=== PATIENT | female | born 1995 | race African-American/Black ===

== ENCOUNTER 2021-04-19 07:10 | Inpatient (IN) | payer OTHER ==
[2021-04-19] VITALS (8 sets, daily range): BP systolic 95–118; BP diastolic 52–63
[~2021-04-19] VITALS: Ht 157.5 cm; Wt 82.5 kg
[~2021-04-19 07:10] MED LIST: IRON15CH PO; PREN200C PO; VITA-243 PO
[2021-04-19] MEDS ORDERED: HOME MED LIST COMPLETE! XX SCH (07:35)
[2021-04-19] MEDS ORDERED: BICITRA 30ML SOLN UDC PO ONE (08:00)
[2021-04-19] MEDS ORDERED: ceFAZolin SOD 2 GM in IV 1 EA IV ONE (08:00)
[2021-04-19] MEDS ORDERED: LR 1,000 ML IV ONE (08:00)
[2021-04-19] MEDS ORDERED: IRON15CH PO (08:01)
[2021-04-19 08:28] LABS: HEMATOCRIT 31.3 % (36.0-47.0); MEAN CORPUSCULAR HEMOGLOBIN 25.6 pg (27.0-33.0); MEAN CORPUSCULAR HGB CONC 31.9 g/dl (32.0-36.5); MEAN CORPUSCULAR VOLUME 80.3 fl (80.0-96.0); PLATELET COUNT, AUTOMATED 296 10^3/uL (150-450); WHITE BLOOD COUNT 11.8 10^3/uL (4.0-10.0)
[2021-04-19] MEDS ORDERED: ONDANSETRON 4MG/2ML VIAL IV PRN ×2 (08:40→11:25)
[2021-04-19] MEDS ORDERED: diphenhydrAMINE 50MG/ML VIAL (J1200) IV PRN (08:40)
[2021-04-19] MEDS ORDERED: METOCLOPRAMIDE INJ 10MG/2ML VIAL (J2765 PER 1) IV PRN (08:40)
[2021-04-19] MEDS ORDERED: NALBUPHINE HCL 10 MG/ML AMP (J2300) IV PRN ×2 (08:40→11:25)
[2021-04-19] MEDS ORDERED: NALOXONE INJ 0.4MG/1ML VIAL (J2310 PER 1MG) IV PRN ×2 (08:40)
[2021-04-19] MEDS ORDERED: MORPHINE PRES-FREE INJ 10 MG/10 ML VIAL (J2274) As Ordered ONE (08:43)
[2021-04-19] MEDS ORDERED: LR 1,000 ML IV SCH (09:00)
[2021-04-19] MEDS ORDERED: dexameTHASONE 4 MG/ML 1ML VIAL (J1100 PER 1MG) As Ordered ONE (09:17)
[2021-04-19] MEDS ORDERED: KETOROLAC 60MG 2ML VIAL As Ordered ONE (09:17)
[2021-04-19] MEDS ORDERED: OXYTOCIN INJ 10 UNITS/ML VIAL (J2590) As Ordered ONE ×2 (09:17→09:18)
[2021-04-19] MEDS ORDERED: ONDANSETRON 4MG/2ML VIAL As Ordered ONE (09:17)
[2021-04-19] MEDS ORDERED: PHENYLephrine 500MCG 5ML (100MCG/ML) SYRINGE As Ordered ONE ×2 (09:18→09:59)
[2021-04-19] MEDS ORDERED: ePHEDrine SULFATE 25 MG/5 ML(5MG/ML) SYRINGE As Ordered ONE (09:18)
[2021-04-19] MEDS ORDERED: OXYTOCIN 30 UNITS IN 0.9% NaCl 500ML IV BAG (J2590) As Ordered ONE ×2 (09:19→11:28)
[2021-04-19 09:33] LABS: BLOOD UREA NITROGEN 6 MG/DL (7-18); CALCIUM LEVEL 8.4 MG/DL (8.5-10.1); CARBON DIOXIDE LEVEL 22 MEQ/L (21-32); CHLORIDE LEVEL 108 MEQ/L (98-107); GLOMERULAR FILTRATION RATE > 60.0 (>60); GLUCOSE, FASTING 118 MG/DL (70-100); SODIUM LEVEL 140 MEQ/L (136-145)
[2021-04-19] MEDS ORDERED: TRANEXAMIC ACID 100 MG/ML 10ML VIAL As Ordered ONE (10:18)
[2021-04-19] MEDS ORDERED: oxyCODONE 5MG TAB PO PRN ×2 (11:05→11:25)
[2021-04-19] MEDS ORDERED: PROMETHAZINE 25 MG TAB PO PRN (11:05)
[2021-04-19] MEDS ORDERED: SIMETHICONE 80MG CHEW TAB PO PRN (11:05)
[2021-04-19] MEDS ORDERED: MEASLES,MUMPS,RUBELLA VACCINE INJ (MMR-II) (90707) SC SCH (11:05)
[2021-04-19] MEDS ORDERED: OXYTOCIN DRIP 30 UNITS in IV 1 EA IV SCH (11:05)
[2021-04-19] MEDS ORDERED: RHOGAM 300 MCG (1500 IU) INJ (J2790) IM SCH (11:05)
[2021-04-19] MEDS ORDERED: ACETAMINOPHEN 500 MG TAB PO PRN (11:05)
[2021-04-19] MEDS ORDERED: MEPERIDINE INJ 25 MG/ML VIAL (J2175) IV PRN (11:25)
[2021-04-19] MEDS ORDERED: HYDROMORPHONE HCL 0.5 MG/ 0.5 ML SYRINGE (J1170 PER 1) IV PRN (11:25)
[2021-04-19] MEDS ORDERED: fentaNYL 100 MCG/2 ML INJECTION IV PRN (11:25)
[2021-04-19] MEDS ORDERED: TRANEXAMIC ACID INJection 1,000 MG in D5W 100 ML IV ONE (12:00)
[2021-04-19] MEDS: LR 1,000 ML IV SCH ×2 (13:06→17:25)
[2021-04-19] MEDS: KETOROLAC 30 MG/ML 1ML VIAL IV SCH ×2 (15:31→21:35)
[2021-04-19 20:06] LABS: BASO % 0.1 % (0.0-1.0); HEMATOCRIT 25.8 % (36.0-47.0); HEMOGLOBIN 8.3 g/dl (12.0-15.5); LYMPH % 11.4 % (24.0-44.0); MEAN CORPUSCULAR HEMOGLOBIN 26.1 pg (27.0-33.0); MEAN CORPUSCULAR HGB CONC 32.2 g/dl (32.0-36.5); MEAN CORPUSCULAR VOLUME 81.1 fl (80.0-96.0); MONO # 0.9 10^3/uL (0.0-0.8); NEUTROPHILS # 14.9 10^3/uL (1.5-8.5); NEUTROPHILS % 82.9 % (36.0-66.0); PLATELET COUNT, AUTOMATED 256 10^3/uL (150-450); RED BLOOD COUNT 3.18 10^6/uL (4.00-5.40); WHITE BLOOD COUNT 17.9 10^3/uL (4.0-10.0)
[2021-04-20 02:00] VITALS: BP 105/55
[2021-04-20] MEDS: LR 1,000 ML IV SCH (03:05)
[2021-04-20] MEDS: KETOROLAC 30 MG/ML 1ML VIAL IV SCH (04:37)
[2021-04-20 06:00] VITALS: BP 100/63
[2021-04-20 09:55] LABS: HEMATOCRIT 25.7 % (36.0-47.0); HEMOGLOBIN 8.3 g/dl (12.0-15.5); MEAN CORPUSCULAR HEMOGLOBIN 26.2 pg (27.0-33.0); MEAN CORPUSCULAR HGB CONC 32.3 g/dl (32.0-36.5); MEAN CORPUSCULAR VOLUME 81.1 fl (80.0-96.0); PLATELET COUNT, AUTOMATED 256 10^3/uL (150-450); RED BLOOD COUNT 3.17 10^6/uL (4.00-5.40); WHITE BLOOD COUNT 15.9 10^3/uL (4.0-10.0)
[2021-04-20 10:00] VITALS: BP 110/53
[2021-04-20] MEDS: PRENATAL VITAMINS CHEWABLE TABLET PO SCH (10:32)
[2021-04-20] MEDS: IBUPROFEN 800 MG TAB PO SCH ×2 (12:17→20:30)
[2021-04-20 22:00] VITALS: BP 116/57
[2021-04-20] MEDS: oxyCODONE 5MG TAB PO PRN (23:05)
[2021-04-21 02:00] VITALS: BP 105/55
[2021-04-21] MEDS: IBUPROFEN 800 MG TAB PO SCH ×3 (04:23→20:14)
[2021-04-21 06:15] VITALS: BP 123/63
[2021-04-21] MEDS: PRENATAL VITAMINS CHEWABLE TABLET PO SCH (09:26)
[2021-04-21] MEDS: oxyCODONE 5MG TAB PO PRN ×2 (09:27→20:14)
[2021-04-21 18:43] VITALS: BP 114/62
[2021-04-22] MEDS: IBUPROFEN 800 MG TAB PO SCH (03:50)
[2021-04-22 06:14] VITALS: BP 118/68
[2021-04-22] MEDS ORDERED: ACET-683 PO (08:18)
[2021-04-22] MEDS ORDERED: OXYC-517 PO (08:18)
[2021-04-22] MEDS ORDERED: IBUP80TA PO (08:18)
[2021-04-22] MEDS: PRENATAL VITAMINS CHEWABLE TABLET PO SCH (09:21)
[2021-04-22] MEDS: oxyCODONE 5MG TAB PO PRN (09:52)
== END 2021-04-22 10:10 | disposition home or self-care (01) | DRG 773 ==
LOC: M LDI 07:10 → M OBS 12:56
PROVIDERS: ADMIT Obstetrics & Gynecology; ATTEND Obstetrics & Gynecology
PROC: 10D00Z1 Extraction of Products of Conception, Low, Open Approach (ICD-10-PCS; principal; 2021-04-19 09:30)
DX: O44.03 Complete placenta previa NOS or without hemorrhage, third trimester (principal); Z3A.36 36 weeks gestation of pregnancy; Z37.0 Single live birth; O24.419 Gestational diabetes mellitus in pregnancy, unspecified control; O99.214 Obesity complicating childbirth; E66.9 Obesity, unspecified; O69.81X0 Labor and delivery complicated by cord around neck, without compression, not applicable or unspecified

== ENCOUNTER → 2023-01-16 | Outpatient (REF) ==
[~2023-01-16] MED LIST changes: +ACET-683 PO; +IBUP80TA PO; +OXYC-517 PO
== END ==
LOC: M PLAIMG 10:03
PROVIDERS: ATTEND Internal Medicine
DX: R06.02 Shortness of breath (principal)